=== PATIENT | female | born 1965 | race Caucasian/White ===

== ENCOUNTER 2021-03-05 22:31 | Emergency (ER) | payer OTHER ==
[2021-03-06] MEDS ORDERED: PERCOCET 5/325 T1 EA PO (02:23)
== END 2021-03-06 03:00 | disposition home or self-care (01) ==
LOC: ER1 22:31
DX: S43.034A Inferior dislocation of right humerus, initial encounter (principal); S42.251A Displaced fracture of greater tuberosity of right humerus, initial encounter for closed fracture; F17.210 Nicotine dependence, cigarettes, uncomplicated; Z88.8 Allergy status to other drugs, medicaments and biological substances; W19.XXXA Unspecified fall, initial encounter
CPT/HCPCS: 23650; 73020; 73030; 73060; 73200; 99152; 99284; J2704